=== PATIENT | female | born 1985 | race Caucasian/White ===

== ENCOUNTER 2021-02-19 18:56 | Emergency (ER) | payer OTHER ==
--- NOTE | 2021-02-19 19:11 | ERPHSYRPT ---
- History of Present Illness Time Seen by Provider: 02/19/21 19:11 Source: patient Exam Limitations: no limitations Physician History: This is a 36-year-old white female who has a dental infection in the right upper molars. It is causing swelling and pain. She woke up this morning and there is significant swelling in the right cheek and infraorbital area. 2 hours ago, she took ibuprofen to help with the pain. Patient states she has no known drug allergies. Timing/Duration: gradual onset ENT Location: dental Prearrival Treatment: over the counter meds Modifying Factors: Improves With: nothing Associated Symptoms: tooth pain (Right upper molars) Allergies/Adverse Reactions: No Known Drug Allergies Allergy (Verified 02/19/21 19:48) Home Medications: ARIPiprazole [Aripiprazole] 1 tab PO HS 02/19/21 [History] hydrOXYzine HCL [Hydroxyzine HCl] 1 tab PO QID PRN 02/19/21 [History] Hx Tetanus, Diphtheria Vaccination/Date Given: No Hx Influenza Vaccination/Date Given: No Hx Pneumococcal Vaccination/Date Given: No Travel Risk - International Travel Have you traveled outside of the country in past 3 weeks: No - Coronavirus Screening Are you exhibiting any of the following symptoms?: No Close contact with a COVID-19 positive Pt in past 14-21 Days: No - Review of Systems Constitutional: No Symptoms Eyes: No Symptoms Ears, Nose, & Throat: Other (Right upper molar dental pain) Respiratory: No Symptoms, No Stridor Cardiac: No Symptoms Abdominal/Gastrointestinal: No Symptoms Genitourinary Symptoms: No Symptoms Musculoskeletal: No Symptoms Skin: No Symptoms Neurological: No Symptoms Psychological: No Symptoms Endocrine: No Symptoms Hematologic/Lymphatic: No Symptoms Immunological/Allergic: No Symptoms All Other Systems: Reviewed and Negative - Past Medical History Pertinent Past Medical History: Yes ENT History: No Pertinent History Cardiac History: No Pertinent History Respiratory History: No Pertinent History Endocrine Medical History: Hypothyroidism Musculoskeletal History: No Pertinent History GI Medical History: Gallbladder Disease History: No Pertinent History Psycho-Social History: Depression Female Reproductive Disorders: No Pertinent History Other Medical History: HYPOTHRYOID - Past Surgical History Past Surgical History: Yes Neuro Surgical History: No Pertinent History Cardiac: No Pertinent History Respiratory: No Pertinent History Gastrointestinal: No Pertinent History Genitourinary: No Pertinent History Musculoskeletal: No Pertinent History Female Surgical History: Section, Tubal Ligation Other Surgical History: CSX3 - Social History Smoking Status: Current every day smoker How long have you smoked: 16 yrs Exposure to second hand smoke: No Drug Use: none Patient Lives Alone: No - Nursing Vital Signs Nursing Vital Signs: Initial Vital Signs Temperature 96.8 F 02/19/21 19:36 Pulse Rate 76 02/19/21 19:36 Respiratory Rate 19 02/19/21 19:36 Blood Pressure 121/77 02/19/21 19:36 O2 Sat by Pulse Oximetry 99 02/19/21 19:36 Pain Scale Pain Intensity 0 - Physical Exam General Appearance: no apparent distress, alert, anxiety Eye Exam: bilateral eye: normal inspection, PERRL, EOMI Ear Exam: bilateral ear: auricle normal Nasal Exam: normal inspection Throat Exam: dental tenderness (With associated dental infection right upper molars and significant dental caries in this area. There is right-sided facial swelling that is mild.) Neck Exam: normal inspection, non-tender, supple, full range of motion, trachea midline Cardiovascular/Respiratory Exam: chest non-tender, no respiratory distress Abdominal Exam: non-tender Neurologic Exam: alert, oriented x 3, cooperative, act english tutor II-XII nml as tested, normal mood/affect, nml cerebellar function, nml station & gait, sensation nml Skin Exam: normal color, warm, dry SpO2 Interpretation: normal O2 Delivery: Room Air - Course Nursing assessment & vital signs reviewed: Yes Ordered Tests: Medication Summary Discontinued Medications Generic Name Dose Route Start Last Admin Trade Name Frankyq PRN Reason Stop Dose Admin Amoxicillin 500 mg 02/19/21 19:58 Amoxicillin Trihydrate 500 Mg Capsule PO 02/19/21 19:59 STAT ONE Oxycodone/Acetaminophen 2 tab 02/19/21 19:58 Oxycodone Hcl/Apap 5 Mg/325 Mg Tablet PO 02/19/21 19:59 SENT HOME W/ PATIENT STA Oxycodone/Acetaminophen 1 tab 02/19/21 19:59 Oxycodone Hcl/Apap 5 Mg/325 Mg Tablet PO 02/19/21 20:00 STAT STA - Progress Progress: unchanged Counseled pt/family regarding: diagnosis, need for follow-up - Departure Departure Disposition: Home Clinical Impression: Infected dental caries Condition: Stable Critical Care Time: No Referrals: LILIANA NOLEN [Primary Care Provider] - Follow up/PCP as directed Additional Instructions: Use Tylenol and ibuprofen for pain control as discussed. Take your antibiotics as prescribed. Call dentist tomorrow to make arrangements for follow-up and definitive care. Prescriptions: Amoxicillin 500 mg Cap [Amoxil 500 mg] 500 mg PO TID #30 cap
[2021-02-19] MEDS ORDERED: PERCOCET TABLET 5/325MG PO STA ×2 (19:58→19:59)
[2021-02-19] MEDS ORDERED: AMOXIL 500 MG PO ONE (19:58)
[2021-02-19] MEDS ORDERED: AMOXIL 500 MG ONE (20:04)
[2021-02-19] MEDS ORDERED: PERCOCET TABLET 5/325MG ONE (20:04)
[2021-02-19 20:18] VITALS: BP 109/77; PULSE 70; O2SAT 98
== END 2021-02-19 20:20 | disposition home or self-care (01) ==
LOC: ED 18:56
DX: K04.7 Periapical abscess without sinus (principal); K08.89 Other specified disorders of teeth and supporting structures; E03.9 Hypothyroidism, unspecified; Z72.0 Tobacco use; Z79.899 Other long term (current) drug therapy
CPT/HCPCS: 99283; A9270-GY